=== PATIENT | male | born 1965 | race Caucasian/White ===

== ENCOUNTER → 2024-03-07 09:24 | Outpatient (REF) | payer OTHER, SELFPAY | LOC: RCS 09:24 | PROVIDERS: ATTENDING PHYSICIAN Internal Medicine Cardiovascular Disease | DX: I77.810 Thoracic aortic ectasia (principal); R00.2 Palpitations; I25.10 Atherosclerotic heart disease of native coronary artery without angina pectoris | CPT/HCPCS: 93306 ==